=== PATIENT | male | born 1980 | race Asian ===

== ENCOUNTER 2018-03-17 07:43 | Emergency (ER) | payer MEDICAID ==
[~2018-03-17] VITALS: Ht 162.6 cm; Wt 61.2 kg
[2018-03-17] MEDS ORDERED: SODIUM CHLORIDE 0.9% 1,000 ML IV ONE (09:37)
[2018-03-17 10:07] LABS: Basophils # (auto) 0 uL; Basophils % (auto) 0.2 % (0.0-2.0); Eosinophils # (auto) 0.1 uL; Eosinophils % (auto) 0.5 % (0.0-7.0); Hematocrit 48.4 % (41.0-53.0); Hemoglobin 15.9 g/dL (13.5-17.5); Lymphocytes # (auto) 1.6 uL; Lymphocytes % (auto) 12.7 % (10.0-50.0); Mean Corpuscular Hgb Conc. 32.9 g/dL (32.0-36.0); Monocytes # (auto) 0.7 uL; Monocytes % (auto) 5.1 % (0.0-12.0); Neutrophils # (auto) 10.6 uL; Neutrophils % (auto) 81.5 % (37.0-80.0); Nucleated Red Blood Cells % 0.1 %; Platelet Count (auto) 298 10^3/uL (140-450); Red Cell Distribution Width 13.8 % (11.8-14.3)
[2018-03-17 10:23] LABS: Albumin 4.3 g/dL (3.4-5.0); BUN/Creatinine Ratio 11.3; Calcium 8.9 mg/dL (8.5-10.1); Potassium 3.8 mmol/L (3.5-5.1)
[2018-03-17 10:26] LABS: Bilirubin, Total 0.3 mg/dL (0.2-1.0); Total Protein 8.8 g/dL (6.4-8.2)
[2018-03-17 10:27] LABS: INR 0.87 (0.9-1.15); Partial Thromboplastin Time 23.1 sec (23.78-33.04); Prothrombin Time 9.4 sec (9.27-12.13)
[2018-03-17 11:03] LABS: Urine Bacteria NONE SEEN /hpf (None Seen); Urine Blood Negative /uL (Negative); Urine Specific Gravity 1.008 (1.001-1.035); Urine WBC 1 /hpf (0 - 3)
[2018-03-17 12:19] VITALS: BP 137/82
== END 2018-03-17 12:20 | disposition home or self-care (01) ==
LOC: ER 07:43
DX: R07.81 Pleurodynia (principal); R07.89 Other chest pain; N13.30 Unspecified hydronephrosis; I10 Essential (primary) hypertension; V49.49XA Driver injured in collision with other motor vehicles in traffic accident, initial encounter; Y93.89 Activity, other specified; Y99.8 Other external cause status; Y92.411 Interstate highway as the place of occurrence of the external cause
CPT/HCPCS: 36415; 71250; 74176; 80053; 81001; 85025; 85610; 85730

== ENCOUNTER → 2021-08-18 | Emergency (ER) | payer MEDICAID ==
[~2021-08-18] VITALS: Ht 162.6 cm; Wt 60.8 kg
[~2021-08-18] MED LIST: HYDR20TA20 PR; IBUP800T26 PO
[2021-08-19 02:13] VITALS: BP 123/47
== END | disposition home or self-care (01) ==
LOC: ER 19:07
DX: K64.4 Residual hemorrhoidal skin tags (principal); I10 Essential (primary) hypertension

== ENCOUNTER 2021-08-26 00:32 | Emergency (ER) | payer MEDICAID ==
[~2021-08-26] VITALS: Ht 162.6 cm; Wt 59.0 kg
[2021-08-26 01:10] VITALS: BP 135/72
== END 2021-08-26 04:54 | disposition left against medical advice (07) ==
LOC: EDUNIT# 00:32 → EDBD 00:32 → ER 00:32
DX: K62.89 Other specified diseases of anus and rectum (principal); Z53.21 Procedure and treatment not carried out due to patient leaving prior to being seen by health care provider